=== PATIENT | male | born 1985 | race Caucasian/White ===

== ENCOUNTER 2017-08-29 15:59 | Emergency (ER) | payer OTHER ==
[~2017-08-29] VITALS: Ht 185.4 cm; Wt 114.0 kg
[~2017-08-29 15:59] MED LIST: LORTA5 PO; PRED20 PO; ROBA750T3 PO
[2017-08-29 16:03] VITALS: BP 146/98; PULSE 75; RESP 16; TEMP 98.4; O2SAT 98
--- NOTE | 2017-08-29 17:26 | PD ---
HPI Chief Complaint: Cold / Flu Symptoms Time Seen by Provider: 17:26 Travel History International Travel<30 days: No Contact w/Intl Traveler<30days: No Traveled to known affect area: No History of Present Illness HPI 32-year-old male here with nasal congestion, body aches, cough, sore throat for one week. Symptom severity is mild to moderate. No aggravating factors. Mildly alleviated with [id number] Tylenol and ibuprofen. He was seen at urgent care and had negative influenza. He is here for recheck. PFS Past Medical History Hx Anticoagulant Therapy: No Cardiovascular Problems: Yes (HTN) Diabetes: No Diminished Hearing: No Hypertension: Yes Tetanus Vaccination: Unknown Past Surgical History Surgical History: No Previous Surgery Social History Alcohol Use: Yes (RARE) Tobacco Use: No Substance Use: No Allergies-Medications (Allergen,Severity, Reaction): Coded Allergies: penicillin G (Unverified Allergy, Mild, 08/29/17) Reported Meds & Prescriptions Reported Meds & Active Scripts Active No Active Prescriptions or Reported Medications Review of Systems Except as stated in HPI: all other systems reviewed are Neg General / Constitutional: Positive: Fever Eyes: No: Visual changes HENT: Positive: Sore Throat, Congestion, No: Headaches Cardiovascular: No: Chest Pain or Discomfort Respiratory: Positive: Cough Gastrointestinal: No: Abdominal Pain Genitourinary: No: Dysuria Physical Exam Narrative GENERAL: Alert well-appearing male. Nontoxic appearing SKIN: Warm and dry. No rash HEAD: Normocephalic. EYES: No injection or drainage. THROAT: Mild pharyngeal erythema without tonsillar hypertrophy or exudate. Uvula is midline. Airway is patent. NECK: Supple, trachea midline. No JVD or lymphadenopathy. No meningismus CARDIOVASCULAR: Regular rate and rhythm without murmurs, gallops, or rubs. RESPIRATORY: Breath sounds equal bilaterally. No accessory muscle use. GASTROINTESTINAL: Abdomen soft, non-tender, nondistended. MUSCULOSKELETAL: No cyanosis, or edema. BACK: Nontender without obvious deformity. No CVA tenderness. Data Data Last Documented VS Vital Signs Date Time Temp Pulse Resp B/P (MAP) Pulse Ox O2 Delivery O2 Flow Rate FiO2 08/29/17 16:03 98.4 75 16 146/98 (114) 98 Orders Orders Ed Discharge Order (08/29/17 17:26) [facility] Medical Decision Making Medical Screen Exam Complete: Yes Emergency Medical Condition: Yes Differential Diagnosis viral illness, influenza, uri Narrative Course 32 year old male. well appearing. vitals are stable. Influenza negative. Diagnosis Primary Impression: Viral illness Referrals: Primary Care Physician Departure Forms: Tests/Procedures, Work Release Enter return to work date: Aug 30, 2017 Additional Instructions: Tylenol or ibuprofen for pain and fever. Stay well hydrated by drinking plenty of fluids. Scripts No Active Prescriptions or Reported Meds Disposition: 01 DISCHARGE HOME Condition: Stable Bell Amezquita Aug 29, 2017 17:26
== END 2017-08-29 17:37 | disposition home or self-care (01) ==
LOC: PHEFT 15:59
DX: B34.9 Viral infection, unspecified (principal); R09.81 Nasal congestion; M79.1 Myalgia; R05 Cough; R07.0 Pain in throat; I10 Essential (primary) hypertension
CPT/HCPCS: 99281